=== PATIENT | male | born 1975 | race Caucasian/White ===

== ENCOUNTER 2023-10-09 16:21 | Outpatient (RCR) | payer OTHER, SELFPAY | END 2023-10-09 23:59 | disposition home or self-care (01) | LOC: RPT 16:21 | PROVIDERS: ATTENDING PHYSICIAN Urology; PRIMARYCARE PHYSICIAN Nurse Practitioner | DX: C61 Malignant neoplasm of prostate (principal) | CPT/HCPCS: 97110; 97112; 97140 ==

== ENCOUNTER 2023-11-20 15:52 | Outpatient (RCR) | payer OTHER, SELFPAY | END 2023-11-20 23:59 | disposition home or self-care (01) | LOC: RPT 15:52 | PROVIDERS: ATTENDING PHYSICIAN Urology; PRIMARYCARE PHYSICIAN Nurse Practitioner | DX: C61 Malignant neoplasm of prostate (principal); Z73.6 Limitation of activities due to disability; R32 Unspecified urinary incontinence; Z90.79 Acquired absence of other genital organ(s) | CPT/HCPCS: 97110; 97112 ==

== ENCOUNTER 2023-12-11 12:27 | Outpatient (RCR) | payer OTHER, SELFPAY | END 2023-12-11 13:01 | disposition home or self-care (01) | LOC: RPT 12:27 | PROVIDERS: ATTENDING PHYSICIAN Urology; PRIMARYCARE PHYSICIAN Nurse Practitioner | DX: C61 Malignant neoplasm of prostate (principal); Z73.6 Limitation of activities due to disability; R32 Unspecified urinary incontinence; Z98.890 Other specified postprocedural states; Z90.79 Acquired absence of other genital organ(s) | CPT/HCPCS: 97110; 97112; 97530 ==

== ENCOUNTER 2024-06-18 06:33 | Outpatient (RCR) | payer OTHER, SELFPAY | END 2024-06-18 23:59 | disposition home or self-care (01) | LOC: RPT 06:33 | PROVIDERS: FAMILY PHYSICIAN Nurse Practitioner | DX: M54.51 Vertebrogenic low back pain (principal); C61 Malignant neoplasm of prostate; M54.6 Pain in thoracic spine; Z73.6 Limitation of activities due to disability | CPT/HCPCS: 97112; 97161 ==

== ENCOUNTER 2024-07-14 10:52 | Outpatient (RCR) | payer OTHER, SELFPAY | END 2024-07-14 23:59 | disposition home or self-care (01) | LOC: RPT 10:52 | PROVIDERS: FAMILY PHYSICIAN Nurse Practitioner | DX: M54.51 Vertebrogenic low back pain (principal); C61 Malignant neoplasm of prostate; M54.6 Pain in thoracic spine; Z73.6 Limitation of activities due to disability; Z90.79 Acquired absence of other genital organ(s) | CPT/HCPCS: 97010; 97110; 97112; 97140 ==

== ENCOUNTER 2024-07-30 09:04 | Outpatient (RCR) | payer OTHER, SELFPAY | END 2024-08-06 23:59 | disposition home or self-care (01) | LOC: RPT 09:04 | PROVIDERS: FAMILY PHYSICIAN Nurse Practitioner | DX: M54.51 Vertebrogenic low back pain (principal); C61 Malignant neoplasm of prostate; M54.6 Pain in thoracic spine; Z73.6 Limitation of activities due to disability | CPT/HCPCS: 97110; 97112 ==